=== PATIENT | male | born 1960 | race African-American/Black ===

== ENCOUNTER 2023-01-01 15:41 | Emergency (ER) | payer SELFPAY ==
[~2023-01-01] VITALS: Ht 170.2 cm; Wt 75.0 kg
[2023-01-01] MEDS ORDERED: SODIUM CHLORIDE 0.9% 1,000 ML IV ONE (16:30)
[2023-01-01] MEDS ORDERED: ASPIRIN 81MG TABLET PO ONE (16:30)
[2023-01-01 17:32] LABS: BASOPHILS % 0.4 % (0.0-2.0); EOSINOPHILS % 0.2 % (0.0-5.0); HEMATOCRIT. 45.5 % (42.0-52.0); HEMOGLOBIN. 16.2 g/dL (14.0-18.0); LYMPHOCYTES % 11.6 % (20.0-50.0); MEAN CORPUSCULAR HEMOGLOBIN 31.4 pg (28.0-32.0); MEAN CORPUSCULAR VOLUME 88.3 fL (80.0-94.0); MONOCYTES % 8.9 % (2.0-8.0); NEUTROPHILS % 78.9 % (40.0-76.0); RED BLOOD CELL COUNT 5.15 mill/uL (4.7-6.1); RED CELL DISTRIBUTION WIDTH 14.1 % (11.6-14.6)
[2023-01-01 17:40] LABS: CHLORIDE 102 mEq/L (98-107)
[2023-01-01 17:47] LABS: ETHANOL BLOOD < 10 mg/dL
[2023-01-01 18:01] LABS: MEAN PLATELET VOLUME 8.8 fl (7.4-10.4)
[2023-01-01 18:05] LABS: PLATELET 46 x1000/uL (130-400)
[2023-01-01 18:20] VITALS: BP 145/82
== END 2023-01-01 18:28 | disposition left against medical advice (07) ==
LOC: ER 15:41
DX: D69.6 Thrombocytopenia, unspecified (principal); R41.82 Altered mental status, unspecified; E87.20 Acidosis, unspecified; E11.9 Type 2 diabetes mellitus without complications; I10 Essential (primary) hypertension
CPT/HCPCS: 36415; 70450; 71045; 80053; 80320; 82962; 83605; 83880; 84443; 84484; 85025; 93005; 96360; 99291; J7030; Z7610; G0480